=== PATIENT | male | born 1985 | race Caucasian/White ===

== ENCOUNTER 2022-04-22 11:58 | Emergency (ER) | payer BC ==
[2022-04-22] MEDS ORDERED: Sodium Chloride 0.9% 1,000 ML IV STA (13:04)
[2022-04-22] MEDS ORDERED: Sodium Chloride 0.9% 10 ML Syringe FLUSH PRN (13:05)
[2022-04-22] MEDS ORDERED: Ibuprofen 600 MG Tab PO ONE (13:05)
[2022-04-22] MEDS ORDERED: Albuterol/Ipratropium 3.0-0.5 MG/3 ML Neb Soln NEB ONE (13:26)
[2022-04-22] MEDS ORDERED: Dexamethasone 6 MG TABLET PO ONE (14:38)
[2022-04-22] MEDS ORDERED: Meclizine 25 MG Tab PO ONE (14:41)
== END 2022-04-22 16:25 | disposition home or self-care (01) ==
LOC: JD.ED 11:58
DX: U07.1 COVID-19 (principal); J12.82 Pneumonia due to coronavirus disease 2019; I10 Essential (primary) hypertension; Z88.1 Allergy status to other antibiotic agents; Z88.0 Allergy status to penicillin; Z88.8 Allergy status to other drugs, medicaments and biological substances; Z86.16 Personal history of COVID-19; Z87.891 Personal history of nicotine dependence
CPT/HCPCS: 36415; 71045; 80053; 84484; 85025; 85379; 86140; 94640; 96360; 96361; 99284; A9270; J3490; J7030; J8540; J7620-GY